=== PATIENT | male | born 1940 | race Caucasian/White ===

== ENCOUNTER 2016-06-04 14:08 | Inpatient (IN) | payer OTHER ==
[~2016-06-04] VITALS: Ht 177.8 cm; Wt 93.7 kg
[2016-06-04] VITALS (9 sets, daily range): BP systolic 116–156; BP diastolic 81–96
[~2016-06-04 14:08] MED LIST: FLOMAX0.4 MG PO; PERCOCET 5/31 TABLET PO
[2016-06-04 14:28] LABS: EOSINOPHIL (%) 0.5 % (0-5); EOSINOPHIL COUNT 0.1 K/uL (0-0.3); HEMATOCRIT 48.1 % (38.0-50.0); IMMATURE GRANULOCYTE (%) 0.2 % (0.0-0.7); IMMATURE GRANULOCYTE COUNT 0.2 K/uL; LYMPHOCYTE COUNT 2.3 K/uL (1.0-2.8); MCH 29.7 PG (29.0-34.0); MCHC 34.1 G/DL (30.0-36.0); MCV 87.1 FL (86-99); MEAN PLAT.VOLUME 10.2 uM^3 (9.0-12.4); MONOCYTE (%) 9.6 % (3-12); MONOCYTE COUNT 0.9 K/uL (0-0.8); NEUTROPHIL (%) 64.2 % (45-76); NEUTROPHIL COUNT 5.9 K/uL (1.8-6.4); PLATELET COUNT 264 K/uL (156-360); RBC DIS.WIDTH-SD 41.2 % (39-53); RED BLOOD COUNT 5.52 M/uL (4.00-5.50); WHITE BLOOD COUNT 9.2 K/uL (4.1-10.2)
[2016-06-04 14:37] LABS: AMYLASE 29 IU/L (1-118); CHLORIDE 104 mEq/L (99-109); POTASSIUM 3.7 mEq/L (3.7-5.4); SODIUM 137 mEq/L (136-147)
[2016-06-04 14:38] LABS: GLUCOSE 157 mg/dL (70-99)
[2016-06-04 14:40] LABS: ANION GAP 13 MEQ/L (2-14)
[2016-06-04 14:41] LABS: INTER. NORMALIZED RATIO 1.1; PROTHROMBIN TIME 11.2 (9.2-11.2); PTT 26.1 (25-32)
[2016-06-04 14:42] LABS: GFR ESTIMATE (CALCULATED) > 59 mL/min/; SERUM ETHYL ALCOHOL < 10 mg/dL
[2016-06-04 14:43] LABS: UREA NITROGEN (BUN) 18 mg/dL (9-23)
[2016-06-04 14:45] LABS: LIPASE 12 U/L (1.0-51.0)
[2016-06-04 14:49] LABS: TROP-I INTERPRETATION NEGATIVE; TROPONIN-I 0.13 ng/mL (0.0-0.30)
[2016-06-04 17:39] LABS: METH RESISTANT S AUREUS PCR NEGATIVE (NEGATIVE)
[2016-06-04 17:42] LABS: PROBE CHECK PASS; SPECIMEN PROCESSING CONTROL PASS
[2016-06-04 19:28] LABS: TROP-I INTERPRETATION POSITIVE
[2016-06-04 19:29] LABS: TROPONIN-I 4.39 ng/mL (0.0-0.30)
[2016-06-05] VITALS (14 sets, daily range): BP systolic 107–149; BP diastolic 67–98
[2016-06-05 00:46] LABS: TROP-I INTERPRETATION POSITIVE; TROPONIN-I 7.61 ng/mL (0.0-0.30)
[2016-06-05 06:05] LABS: EOSINOPHIL (%) 0.8 % (0-5); EOSINOPHIL COUNT 0.1 K/uL (0-0.3); HEMATOCRIT 44.7 % (38.0-50.0); IMMATURE GRANULOCYTE (%) 0.2 % (0.0-0.7); LYMPHOCYTE COUNT 1.3 K/uL (1.0-2.8); MCH 30.8 PG (29.0-34.0); MCHC 34.2 G/DL (30.0-36.0); MCV 90.1 FL (86-99); MEAN PLAT.VOLUME 10.8 uM^3 (9.0-12.4); MONOCYTE (%) 11.5 % (3-12); MONOCYTE COUNT 1.1 K/uL (0-0.8); NEUTROPHIL (%) 73.1 % (45-76); NEUTROPHIL COUNT 6.7 K/uL (1.8-6.4); PLATELET COUNT 210 K/uL (156-360); RBC DIS.WIDTH-CV 13.2 % (11.8-14.6); RBC DIS.WIDTH-SD 43.3 % (39-53); RED BLOOD COUNT 4.96 M/uL (4.00-5.50); WHITE BLOOD COUNT 9.2 K/uL (4.1-10.2)
[2016-06-05 06:30] LABS: ANION GAP 10 MEQ/L (2-14); CHLORIDE 107 MEQ/L (99-109); GFR ESTIMATE (CALCULATED) > 59 mL/min/; HDL CHOLESTEROL 47 MG/DL (Desirable>=40); LDL CHOLESTEROL 91 mg/dL (Desirable<100); NON-HDL CHOLESTEROL 102 mg/dL (Desirable<160); POTASSIUM 4.4 MEQ/L (3.7-5.4); SAMPLE HEMOLYSIS CHECK 0; SAMPLE ICTERIC CHECK 0; SAMPLE LIPEMIA CHECK 0; SODIUM 138 MEQ/L (136-147); TOTAL CHOLESTEROL 149 mg/dL (Desirable<200); TRIGLYCERIDES 56 MG/DL (Normal: <150); UREA NITROGEN (BUN) 14 mg/dL (9-23)
[2016-06-05 06:32] LABS: GLUCOSE 84 mg/dL (70-99)
[2016-06-05 06:33] LABS: TROP-I INTERPRETATION POSITIVE
[2016-06-05 06:34] LABS: TROPONIN-I 6.31 ng/mL (0.0-0.30)
[2016-06-05 06:59] LABS: Estimated Average Glucose 123 mg/dL (70-123); HEMOGLOBIN A1c (GLYCOHEMOGLOB) 5.9 % HGB (Below 5.7)
[2016-06-06 04:40] LABS: HEMATOCRIT 46.3 % (38.0-50.0); MCH 29.3 PG (29.0-34.0); MCHC 33.3 G/DL (30.0-36.0); MCV 88.2 FL (86-99); MEAN PLAT.VOLUME 10.3 uM^3 (9.0-12.4); PLATELET COUNT 219 K/uL (156-360); RBC DIS.WIDTH-CV 13.4 % (11.8-14.6); RBC DIS.WIDTH-SD 42.7 % (39-53); RED BLOOD COUNT 5.25 M/uL (4.00-5.50); WHITE BLOOD COUNT 9.2 K/uL (4.1-10.2)
[2016-06-06 04:47] VITALS: BP 115/68
[2016-06-06 04:49] LABS: CHLORIDE 108 mEq/L (99-109); POTASSIUM 4.1 mEq/L (3.7-5.4); SODIUM 137 mEq/L (136-147)
[2016-06-06 04:50] LABS: GLUCOSE 97 mg/dL (70-99)
[2016-06-06 04:52] LABS: ANION GAP 10 MEQ/L (2-14)
[2016-06-06 04:54] LABS: GFR ESTIMATE (CALCULATED) > 59 mL/min/
[2016-06-06 04:55] LABS: UREA NITROGEN (BUN) 17 mg/dL (9-23)
[2016-06-06 07:56] VITALS: BP 110/73
[2016-06-06] MEDS ORDERED: ATORVASTATIN CA80 MG PO (10:56)
[2016-06-06] MEDS ORDERED: LISINOPRIL2.5 MG PO (10:56)
[2016-06-06] MEDS ORDERED: NITROSTAT0.4 MG SL (10:56)
[2016-06-06] MEDS ORDERED: SPIRONOLACTONE25 MG PO (10:56)
[2016-06-06] MEDS ORDERED: ASPIR-LOW81 MG PO (10:56)
[2016-06-06] MEDS ORDERED: BRILINTA90 MG PO (10:56)
[2016-06-06 12:02] VITALS: BP 115/72
== END 2016-06-06 13:45 | disposition home or self-care (01) | DRG 247 ==
LOC: EME 14:08 → CATH 14:45 → 4EAST 15:56 → 4WEST 15:56 → 2SOUTH 15:56 → 4WEST 16:11 → 4EAST 06-05 20:45
PROVIDERS: Emergency Medicine; Internal Medicine Cardiovascular Disease
DX: I21.02 ST elevation (STEMI) myocardial infarction involving left anterior descending coronary artery (principal); I25.5 Ischemic cardiomyopathy; I25.10 Atherosclerotic heart disease of native coronary artery without angina pectoris; I77.1 Stricture of artery; J98.11 Atelectasis; Z85.828 Personal history of other malignant neoplasm of skin
CPT/HCPCS: 71010; 80048; 80061; 81003; 82150; 83036; 83690; 84132 91; 84484; 85025; 85027; 85610; 85730; 86850; 86900; 86901; 87641; 93005; 93306; 99281; 99284; C1725; C1760; C1769; C1874; C1887; C1894; G0480; J0583; J1644; J2250; J2270; J3010; J7050

== ENCOUNTER 2017-10-31 14:16 | Emergency (ER) | payer OTHER ==
[~2017-10-31] VITALS: Ht 177.8 cm; Wt 99.1 kg
[~2017-10-31 14:16] MED LIST changes: +ASPIR-LOW81 MG PO; +ATORVASTATIN CA80 MG PO; +BRILINTA90 MG PO; +LISINOPRIL2.5 MG PO; +NITROSTAT0.4 MG SL; +SPIRONOLACTONE25 MG PO
[2017-10-31 17:05] VITALS: BP 139/80
== END 2017-10-31 17:06 | disposition home or self-care (01) ==
LOC: EME 14:16
PROC: 0JQG0ZZ Repair Right Lower Arm Subcutaneous Tissue and Fascia, Open Approach (ICD-10-PCS; principal; 2017-10-31)
DX: S51.811A Laceration without foreign body of right forearm, initial encounter (principal); W29.3XXA Contact with powered garden and outdoor hand tools and machinery, initial encounter; Y93.H9 Activity, other involving exterior property and land maintenance, building and construction; Z79.82 Long term (current) use of aspirin
CPT/HCPCS: 99281; 99285